=== PATIENT | male | born 1940 | race Hispanic/Latino ===

== ENCOUNTER 2020-06-08 19:30 | Inpatient (IN) | payer MEDICARE ==
[~2020-06-08] VITALS: Ht 165.1 cm; Wt 95.3 kg
[~2020-06-08 19:30] MED LIST: AEC81 PO; AMLO10TA7 PO; CELE-84 PO; CLON0.1T PO; CYCL30DR; ESOM40CA PO; METF-444 PO; OLME20TA10 PO; ROSU20TA23 PO
[2020-06-08] MEDS ORDERED: CEFAZOLIN SODIUM 1 GM VIAL ONE (19:36)
[2020-06-08] MEDS ORDERED: SODIUM CHLORIDE 0.9% 50 ML IV ONE (19:38)
[2020-06-08] MEDS ORDERED: MORPHINE SULFATE 2 MG/ML 1ML SYG ONE ×2 (19:44→23:30)
[2020-06-08] MEDS ORDERED: ONDANSETRON HCL 4 MG/2 ML VIAL ONE (19:44)
[2020-06-08] MEDS ORDERED: SODIUM CHLORIDE 0.9% 500ML 500 ML IV ONE (19:45)
[2020-06-08] MEDS ORDERED: TETANUS/DIPHTHERIA TOXOID [ADULT] 0.5 ML VIAL IM ONE (19:45)
[2020-06-08 19:55] LABS: BASOPHILS % (AUTO) 0.3 % (0.0-5.0); EOSINOPHILS % (AUTO) 1.1 % (0.0-8.0); HEMATOCRIT 37.3 % (42-54); LYMPHOCYTES % (AUTO) 37.4 % (21.0-51.0); MEAN CORPUSCULAR HEMOGLOBIN 29.7 pg (27.0-33.0); MEAN CORPUSCULAR HGB CONC 34.6 g/dL (32.0-36.0); MEAN CORPUSCULAR VOLUME 85.9 fL (79-99); MONOCYTES % (AUTO) 9.2 % (3.0-13.0); NEUTROPHILS % (AUTO) 51.3 % (40.0-77.0); PLATELET COUNT (AUTO) 154 K/uL (130-400); RED BLOOD CELL COUNT(AUTO) 4.34 MIL/uL (4.50-6.20); WHITE BLOOD COUNT (AUTO) 7.5 K/uL (4.8-10.8)
[2020-06-08 20:05] LABS: INR 0.95 (0.85-1.15); PARTIAL THROMBOPLASTIN TIME 26.7 SEC (26.3-35.5); PROTHROMBIN TIME 10.3 SEC (9.6-11.6)
[2020-06-08 20:19] LABS: CREATININE 1.5 mg/dL (0.5-1.5); POTASSIUM 4.5 mmol/L (3.5-5.1)
[2020-06-08 20:22] LABS: BILIRUBIN,TOTAL 0.3 mg/dL (0.2-1.0)
[2020-06-08] MEDS ORDERED: ACETAMINOPHEN 325 MG TAB PO PRN (20:30)
[2020-06-08] MEDS ORDERED: ONDANSETRON HCL 4 MG/2 ML VIAL IVP PRN (20:30)
[2020-06-08] MEDS: INSULIN R PO SS1 SQ SCH (21:00)
--- NOTE | 2020-06-08 23:36 | NUR ---
teodoro smith gave me report on the patient. he said he spoke with doctor whitehead and the doctor will come and see the patient in the morning and will decide if he will take him to surgery. for now, no official orders for surgery.
[2020-06-09] VITALS (7 sets, daily range): BP systolic 131–179; BP diastolic 59–73
--- NOTE | 2020-06-09 | NUR ---
patient alert and oriented times four. daughter tmaie goldman at the bedside and we went over his home medications one by one. i changed patient's wound with saline, nonadherent gauze, kerlex, toney wrap, and tape. picture taken and placed on the chart. placed patient npo after midnight in case doctor charley takes him to surgery in the morning. i texted doctor sheridan at 05:00 am to let him know that the patient needs a history and physical for surgery. pending call back. no further issues with the patient.
[2020-06-09] MEDS ORDERED: PANT20TA18 PO (00:34)
[2020-06-09] MEDS ORDERED: DONE5TAB33 PO (00:34)
[2020-06-09] MEDS ORDERED: OLME1TAB84 PO (00:34)
[2020-06-09 05:18] LABS: HEMATOCRIT 35.9 % (42-54); MEAN CORPUSCULAR HEMOGLOBIN 29.9 pg (27.0-33.0); MEAN CORPUSCULAR HGB CONC 34.8 g/dL (32.0-36.0); MEAN CORPUSCULAR VOLUME 85.9 fL (79-99); RED BLOOD CELL COUNT(AUTO) 4.18 MIL/uL (4.50-6.20); WHITE BLOOD COUNT (AUTO) 8.3 K/uL (4.8-10.8)
[2020-06-09] MEDS: INSULIN R PO SS1 SQ SCH ×4 (05:37→21:00)
[2020-06-09 05:53] LABS: ALBUMIN 3.4 g/dL (3.5-5.0); BILIRUBIN,TOTAL 0.3 mg/dL (0.2-1.0); MAGNESIUM 1.9 mg/dL (1.80-2.40); POTASSIUM 4.2 mmol/L (3.5-5.1); TOTAL PROTEIN, SERUM 6.3 g/dL (6.0-8.3)
[2020-06-09] MEDS: MORPHINE SULFATE 2 MG/ML 1ML SYG IVP PRN ×2 (13:14→21:30)
--- NOTE | 2020-06-09 16:57 | NUR ---
YESSY NOTE/DUDLEY UNABLE TO MEET WITH PATIENT IN ROOM, NEXT OF KIN CALLED, RAJ KOENIG. PER DAUGHTER, PATIENT LIVES WITH SPOUSE, IS INDEPENDENT WITH ADLS, NO USE OF HOME HEALTH OR PROVIDER, HAS CANE AND FEELS SAFE FOR PATIENT TO RETURN HOME AFTER HOSPITAL DISCHARGE. Addendum: 06/09/20 at 1658 by AMAN CROOKS RN CM Amended: Links added. Addendum: 06/09/20 at 1700 by AMAN CROOKS RN CM PER DAUGHTER, PATIENT DOES HAVE PROVIDER SERVICES BUT UNSURE OF HOURS FOR PROVIDER.
[2020-06-10] VITALS (20 sets, daily range): BP systolic 124–178; BP diastolic 65–78
[2020-06-10] MEDS: INSULIN R PO SS1 SQ SCH ×4 (06:52→22:22)
--- NOTE | 2020-06-10 11:10 | NUR ---
PT TAKEN TO SURGERY BY BED IN GOOD CONDITION ACCOMPANIED BY HIS DAUGHTER WHO WORKS IN SURGERY AND TECHS. CALM AND PLEASANT WITH DRSG TO LEFT HAND C/D/I S/L IN PLACE.
[2020-06-10] MEDS ORDERED: SODIUM CHLORIDE 0.9% 1000ML 1,000 ML IV ONE (11:11)
[2020-06-10] MEDS ORDERED: LIDOCAINE HCL 1% 20 ML VIAL ONE (11:30)
[2020-06-10] MEDS ORDERED: BUPIVACAINE/PF 0.5% 30ML VIAL ONE (11:30)
[2020-06-10] MEDS ORDERED: CEFAZOLIN SODIUM 1 GM VIAL ONE ×2 (11:31→11:59)
[2020-06-10] MEDS ORDERED: DEXAMETHASONE SOD PHOSPHATE 10MG/ML 1ML VIAL ONE (11:33)
[2020-06-10] MEDS ORDERED: LIDOCAINE PF 2% 5ML ABBOJECT ONE (11:33)
[2020-06-10] MEDS ORDERED: SUCCINYLCHOLINE CHLORIDE 20 MG/ML 10 ML VIAL ONE (11:33)
[2020-06-10] MEDS ORDERED: ROCURONIUM 10MG/1ML SYR 10 MG/ML ML ONE (11:34)
[2020-06-10] MEDS ORDERED: GLYCOPYRROLATE 1 MG/5 ML SYRINGE ONE (11:34)
[2020-06-10] MEDS ORDERED: NEOSTIGMINE 5MG/5ML SYR IV ONE (11:34)
[2020-06-10] MEDS ORDERED: MIDAZOLAM HCL 1 MG/ML 2ML VIAL ONE (11:34)
[2020-06-10] MEDS ORDERED: PROPOFOL 10 MG/ML 20ML VIAL IV ONE (11:34)
[2020-06-10] MEDS ORDERED: ONDANSETRON HCL 4 MG/2 ML VIAL ONE (11:34)
[2020-06-10] MEDS ORDERED: FENTANYL CITRATE PF 50 MCG/1 ML 2ML VIAL ONE ×2 (11:35→12:53)
[2020-06-10] MEDS ORDERED: DEXAMETHASONE SOD PHOSPHATE 4 MG/ML 1ML VIAL ONE (11:39)
--- NOTE | 2020-06-10 14:52 | NUR ---
PT RETURNED TO THE ROOM IN GOOD CONDITION BY BED A/OX4 WITH DRSG TO LT HAND IN PLACE. C/D/I
[2020-06-11 04:22] VITALS: BP 141/60
[2020-06-11 07:30] VITALS: BP 160/64
[2020-06-11] MEDS: INSULIN R PO SS1 SQ SCH ×4 (08:35→21:47)
[2020-06-11] MEDS: MORPHINE SULFATE 2 MG/ML 1ML SYG IVP PRN (08:41)
[2020-06-11 11:00] VITALS: BP 182/60
[2020-06-11] MEDS ORDERED: AMLODIPINE BESYLATE 5 MG TAB PO SCH ×2 (12:12→12:15)
[2020-06-11] MEDS: OLMESARTAN HCTZ PO SCH (12:13)
[2020-06-11] MEDS ORDERED: CLONIDINE HCL 0.1 MG TABLET PO SCH (12:15)
[2020-06-11] MEDS: CELECOXIB 200 MG CAP PO SCH (12:33)
[2020-06-11] MEDS: ASPIRIN 81 MG EC TAB PO SCH (12:35)
--- NOTE | 2020-06-11 12:44 | NUR ---
1210 patient signed IM Letter, I faxed IM Letter to [phone] and placed in chart under consent tab.
[2020-06-11 16:00] VITALS: BP 148/66
[2020-06-11 20:24] VITALS: BP 148/61
[2020-06-11] MEDS ORDERED: DONEPEZIL HCL 5 MG TAB PO SCH (21:00)
[2020-06-11] MEDS ORDERED: ATORVASTATIN CALCIUM 40 MG TABLET PO SCH (21:00)
[2020-06-11] MEDS: CLONIDINE HCL 0.1 MG TABLET PO SCH (21:45)
[2020-06-11 23:40] VITALS: BP 135/58
[2020-06-12 03:32] VITALS: BP 142/67
[2020-06-12] MEDS: INSULIN R PO SS1 SQ SCH (06:43)
[2020-06-12 08:00] VITALS: BP 155/71
[2020-06-12] MEDS: CLONIDINE HCL 0.1 MG TABLET PO SCH (08:54)
[2020-06-12] MEDS: OLMESARTAN HCTZ PO SCH (08:55)
[2020-06-12] MEDS: ASPIRIN 81 MG EC TAB PO SCH (08:55)
[2020-06-12] MEDS: CELECOXIB 200 MG CAP PO SCH (08:55)
[2020-06-12] MEDS ORDERED: AMLODIPINE BESYLATE 5 MG TAB PO SCH (09:00)
[2020-06-12 12:00] VITALS: BP 140/69
--- NOTE | 2020-06-12 15:07 | NUR ---
DISCHARGE INSTRUCTION PROVIDED TO PATIENT ,ALONG WITH SCRIPT FOR TYNENOL #3 .INFO GIVEN ON SIGNS TO LOOK OUT FOR ON CIRCULATION OR ANY PROBLEMS WITH INCISION.. F/U WITH DR FELIZ ALSO INFO PROVIDED TO DAUGHTER JOVANA VIA PHONE
[2020-07-12] MEDS ORDERED: ACET-66 PO (14:14)
== END 2020-06-12 15:00 | disposition home or self-care (01) | DRG 906 ==
LOC: EDH 19:30 → EDHIP 20:16 → INTOOBSV 20:16 → OBSVTOIN 20:16 → 3DH 23:04
PROVIDERS: ADMIT Internal Medicine Infectious Disease; ATTEND Internal Medicine Infectious Disease
PROC: 3E0234Z Introduction of Serum, Toxoid and Vaccine into Muscle, Percutaneous Approach (ICD-10-PCS; 2020-06-08)
PROC: 0PDS0ZZ Extraction of Left Thumb Phalanx, Open Approach (ICD-10-PCS; principal; 2020-06-10 12:35)
PROC: 0PSS34Z Reposition Left Thumb Phalanx with Internal Fixation Device, Percutaneous Approach (ICD-10-PCS; 2020-06-10 12:35)
DX: S68.022A Partial traumatic metacarpophalangeal amputation of left thumb, initial encounter (principal); Z23 Encounter for immunization; N18.9 Chronic kidney disease, unspecified; I12.9 Hypertensive chronic kidney disease with stage 1 through stage 4 chronic kidney disease, or unspecified chronic kidney disease; E11.22 Type 2 diabetes mellitus with diabetic chronic kidney disease; E66.9 Obesity, unspecified; Z68.34 Body mass index [BMI] 34.0-34.9, adult; E78.5 Hyperlipidemia, unspecified; F03.90 Unspecified dementia, unspecified severity, without behavioral disturbance, psychotic disturbance, mood disturbance, and anxiety; Z83.3 Family history of diabetes mellitus; M19.90 Unspecified osteoarthritis, unspecified site
CPT/HCPCS: 36415; 73130; 73140; 80053; 82948; 83735; 85025; 85027; 85610; 85730; 90714; A4606; C1713; G0378; J0330; J0690; J1100; J1815; J2001; J2250; J2405; J2704; J2710; J3010; J3490; J7030; J7040

== ENCOUNTER 2020-07-13 09:12 | Day surgery (SDC) | payer MEDICARE ==
[2020-07-12 09:29] LABS: BASOPHILS % (AUTO) 0.3 % (0.0-5.0); EOSINOPHILS % (AUTO) 0.2 % (0.0-8.0); HEMATOCRIT 38.5 % (42-54); LYMPHOCYTES % (AUTO) 16.4 % (21.0-51.0); MEAN CORPUSCULAR HEMOGLOBIN 29.4 pg (27.0-33.0); MEAN CORPUSCULAR HGB CONC 34.3 g/dL (32.0-36.0); MEAN CORPUSCULAR VOLUME 85.7 fL (79-99); MONOCYTES % (AUTO) 11.1 % (3.0-13.0); NEUTROPHILS % (AUTO) 71.2 % (40.0-77.0); PLATELET COUNT (AUTO) 144 K/uL (130-400); RED BLOOD CELL COUNT(AUTO) 4.49 MIL/uL (4.50-6.20); RED CELL DISTRIBUTION WIDTH 12.8 % (11.0-15.5); WHITE BLOOD COUNT (AUTO) 6.4 K/uL (4.8-10.8)
[2020-07-12 10:01] LABS: CREATININE 1.1 mg/dL (0.5-1.5); POTASSIUM 4.1 mmol/L (3.5-5.1)
[2020-07-12 13:46] VITALS: BP 158/76
[2020-07-13] VITALS (12 sets, daily range): BP systolic 144–163; BP diastolic 55–72
[~2020-07-13] VITALS: Ht 174 cm; Wt 95.6 kg
[~2020-07-13 09:12] MED LIST changes: +ACET-66 PO; +AMLO-258 PO; -AMLO10TA7 PO; +CEFAZOLIN SODIUM 1 GM VIAL IVP ONE; +DONE5TAB33 PO; -ESOM40CA PO; +OLME1TAB84 PO; -OLME20TA10 PO; +PANT20TA18 PO
[2020-07-13] MEDS ORDERED: CEFAZOLIN SODIUM 1 GM VIAL ONE (09:16)
[2020-07-13] MEDS ORDERED: SODIUM CHLORIDE 0.9% 1000ML 1,000 ML IV ONE (09:17)
[2020-07-13] MEDS ORDERED: DAPA10TA PO (10:28)
[2020-07-13] MEDS ORDERED: LOSA25TA41 PO (10:28)
[2020-07-13] MEDS ORDERED: MIDAZOLAM HCL 1 MG/ML 2ML VIAL ONE (10:54)
[2020-07-13] MEDS ORDERED: FENTANYL CITRATE PF 50 MCG/1 ML 2ML VIAL ONE (10:54)
--- NOTE | 2020-07-13 13:55 | NUR ---
DISCHARGE INSTRUCTIONS PROVIDED TO PATIENT'S DAUGHTER (RAJ KOENIG). INSTRUCTED TO CALL DR FINLEY FOR FOLLOW UP APPOINTMENT IN 1 WEEK. ALL QUESTIONS/CONCERNS ADDRESSED.
--- NOTE | 2020-07-13 14:10 | NUR ---
PATIENT DISCHARGED FROM FACILITY AND ASSISTED INTO PRIVATE VEHICLE DRIVEN BY DAUGHTER (RAJ KOENIG).
== END 2020-07-13 14:10 | disposition home or self-care (01) ==
LOC: DAH 09:12
PROVIDERS: ATTEND Orthopaedic Surgery
DX: T84.89XA Other specified complication of internal orthopedic prosthetic devices, implants and grafts, initial encounter (principal); E11.9 Type 2 diabetes mellitus without complications; I10 Essential (primary) hypertension; K21.9 Gastro-esophageal reflux disease without esophagitis; Y83.8 Other surgical procedures as the cause of abnormal reaction of the patient, or of later complication, without mention of misadventure at the time of the procedure
CPT/HCPCS: 26320; 36415; 64417; 73140; 76942; 80048; 82948 ×2; 85025; 93005; A4215; A4221; A4222; A4223; A4606; A6223; A6445; C9803; J0690; J2250; J3010; J7030; U0003

== ENCOUNTER → 2020-08-13 | Outpatient (CLI) | payer MEDICARE ==
[~2020-08-13] MED LIST changes: -CEFAZOLIN SODIUM 1 GM VIAL IVP ONE; +DAPA10TA PO; -DONE5TAB33 PO; +LOSA25TA41 PO; -OLME1TAB84 PO
== END | disposition home or self-care (01) ==
LOC: SHCH 10:39
PROVIDERS: ATTEND Internal Medicine Cardiovascular Disease
DX: I35.0 Nonrheumatic aortic (valve) stenosis (principal); R01.1 Cardiac murmur, unspecified
CPT/HCPCS: 93306

== ENCOUNTER → 2020-08-16 | Outpatient (CLI) | payer MEDICARE ==
[~2020-08-16] VITALS: Ht 167.6 cm; Wt 91.6 kg
[~2020-08-16] MED LIST changes: +REGADENOSON 0.4 MG/5 ML PF SYG IVP SCH
== END | disposition home or self-care (01) ==
LOC: SHCH 08:06
PROVIDERS: ATTEND Internal Medicine Cardiovascular Disease
DX: R06.00 Dyspnea, unspecified (principal); I35.0 Nonrheumatic aortic (valve) stenosis
CPT/HCPCS: 78452; 93017; 96374; A9500 ×2; J2785

== ENCOUNTER → 2021-07-07 | Outpatient (CLI) | payer MEDICARE ==
[~2021-07-07] MED LIST changes: -REGADENOSON 0.4 MG/5 ML PF SYG IVP SCH
== END | disposition home or self-care (01) ==
LOC: SHCH 12:31
PROVIDERS: ATTEND Internal Medicine Cardiovascular Disease
DX: I65.23 Occlusion and stenosis of bilateral carotid arteries (principal)
CPT/HCPCS: 93880

== ENCOUNTER → 2021-09-26 | Outpatient (CLI) | payer OTHER | END | disposition home or self-care (01) | LOC: RAH 08:42 | PROVIDERS: ATTEND Internal Medicine Cardiovascular Disease | DX: Z13.6 Encounter for screening for cardiovascular disorders (principal); I25.10 Atherosclerotic heart disease of native coronary artery without angina pectoris; I51.5 Myocardial degeneration | CPT/HCPCS: 75571 ==

== ENCOUNTER 2021-11-02 05:46 | Day surgery (SDC) | payer MEDICARE ==
[2021-10-27 09:48] LABS: BASOPHILS % (AUTO) 0.3 % (0.0-5.0); EOSINOPHILS % (AUTO) 1.1 % (0.0-8.0); HEMATOCRIT 42.9 % (42-54); LYMPHOCYTES % (AUTO) 26.4 % (21.0-51.0); MEAN CORPUSCULAR HEMOGLOBIN 27.6 pg (27.0-33.0); MEAN CORPUSCULAR HGB CONC 33.3 g/dL (32.0-36.0); MEAN CORPUSCULAR VOLUME 82.7 fL (79-99); MONOCYTES % (AUTO) 9.1 % (3.0-13.0); NEUTROPHILS % (AUTO) 62.4 % (40.0-77.0); PLATELET COUNT (AUTO) 165 K/uL (130-400); RED BLOOD CELL COUNT(AUTO) 5.19 MIL/uL (4.50-6.20); RED CELL DISTRIBUTION WIDTH 14.6 % (11.0-15.5); WHITE BLOOD COUNT (AUTO) 7.5 K/uL (4.8-10.8)
[2021-10-27 09:52] LABS: APPEARANCE,URINE Clear (CLEAR); BILIRUBIN,URINE Negative (NEGATIVE); COLOR,URINE Yellow (YELLOW); GLUCOSE, URINE (UA) >=1000 mg/dL (NEGATIVE); KETONES,URINE Negative (NEGATIVE); LEUKOCYTE ESTERASE ,URINE Negative (NEGATIVE); NITRATE,URINE Negative (NEGATIVE); OCCULT BLOOD,URINE Negative (NEGATIVE); PROTEIN,URINE Negative (NEGATIVE)
[2021-10-27 09:59] LABS: POTASSIUM 4.7 mmol/L (3.5-5.1)
[2021-10-27 10:07] LABS: INR 1.04 (0.85-1.15); PROTHROMBIN TIME 11.3 SEC (9.6-11.6)
[2021-10-27 10:08] LABS: PARTIAL THROMBOPLASTIN TIME 30.8 SEC (26.3-35.5)
[2021-10-27 10:09] LABS: BACTERIA,URINE Rare /HPF (None Seen); RBC,URINE 0-1 /HPF (0-1); SQUAMOUS EPITHELIAL CELL,UR Rare /HPF (0-2); WBC,URINE 0-1 /HPF (0-1)
[2021-11-01 11:14] VITALS: BP 162/76
[2021-11-02] VITALS (12 sets, daily range): BP systolic 121–171; BP diastolic 54–72
[~2021-11-02] VITALS: Ht 167.6 cm; Wt 86.6 kg
[~2021-11-02 05:46] MED LIST changes: -ACET-66 PO; +BIMA12.5OS OD; +CILO50TA PO; +CITA-106 PO; -CLON0.1T PO; -CYCL30DR; +DONE5TAB33 PO; +ISOS30TA92 PO; -LOSA25TA41 PO; +OLME-9 PO
[2021-11-02] MEDS ORDERED: 0.9%NACL 1000ML 1,000 ML IV ONE (06:06)
[2021-11-02] MEDS ORDERED: IOHEXOL 350 MG/ML 100ML INFUS..BTL IV ONE (07:14)
[2021-11-02] MEDS ORDERED: NITROGLYCERIN 50MG VIAL ONE (07:14)
[2021-11-02] MEDS ORDERED: HEPARIN 10,000 UNIT/10ML (1,000 UNIT/ML) VIAL ONE (07:14)
[2021-11-02] MEDS ORDERED: IOHEXOL-350 50ML VIAL IV ONE (07:14)
[2021-11-02] MEDS ORDERED: HEPARIN 1,000 UNIT VIAL ONE (07:14)
[2021-11-02] MEDS ORDERED: LIDOCAINE HCL 400MG/20ML VIAL ONE (07:29)
[2021-11-02] MEDS ORDERED: DEXTROSE 50%-WATER 50 ML DISP.SYRIN IV PRN (08:30)
[2021-11-02] MEDS ORDERED: 0.9%NACL 10ML VIAL IVP SCH (08:30)
[2021-11-02] MEDS ORDERED: PHARMACY COMMUNICATION MISC SCH (08:30)
[2021-11-02] MEDS ORDERED: CITALOPRAM 20 MG TABLET PO SCH (09:00)
[2021-11-02] MEDS ORDERED: ASPIRIN 81 MG EC TAB PO SCH (09:00)
[2021-11-02] MEDS ORDERED: ISOSORBIDE MONO 30MG SR TAB PO SCH (09:00)
[2021-11-02] MEDS ORDERED: LOSARTAN 100 MG TABLET PO SCH (09:00)
[2021-11-02] MEDS ORDERED: **HM**FARXIGA 10MG PO SCH (09:00)
[2021-11-02] MEDS ORDERED: PANTOPRAZOLE 40 MG TAB DR PO SCH (09:00)
[2021-11-02] MEDS ORDERED: CILOSTAZOL 100 MG TAB PO SCH (09:00)
[2021-11-02] MEDS ORDERED: AMLODIPINE 5 MG TAB PO SCH (09:00)
[2021-11-02] MEDS ORDERED: HYDROCHLOROTHIAZIDE 25 MG TABLET PO SCH (09:00)
[2021-11-02] MEDS ORDERED: CELECOXIB 200 MG CAP PO SCH (09:00)
[2021-11-02] MEDS ORDERED: INSULIN HUMULIN R 100 UNIT/ML 3ML SQ SCH (11:30)
[2021-11-02] MEDS ORDERED: ATORVASTATIN 40 MG TABLET PO SCH (21:00)
[2021-11-02] MEDS ORDERED: DONEPEZIL HCL 5 MG TAB PO SCH (21:00)
[2021-11-02] MEDS ORDERED: LATANOPROST 2.5 ML DROPS OD SCH (21:00)
[2021-11-04] MEDS ORDERED: METFORMIN HCL 500 MG TABLET PO SCH (09:00)
== END 2021-11-02 16:20 | disposition home or self-care (01) ==
LOC: DAH 05:46 → UNDOADMIN 05:47 → DAHIP 05:47
PROVIDERS: ATTEND Internal Medicine Cardiovascular Disease
DX: I25.119 Atherosclerotic heart disease of native coronary artery with unspecified angina pectoris (principal); I10 Essential (primary) hypertension; E78.00 Pure hypercholesterolemia, unspecified; Z79.01 Long term (current) use of anticoagulants; Z79.84 Long term (current) use of oral hypoglycemic drugs; Z79.82 Long term (current) use of aspirin; Z98.890 Other specified postprocedural states; Z82.49 Family history of ischemic heart disease and other diseases of the circulatory system
CPT/HCPCS: 36415; 71045; 80048; 81001; 82948 ×2; 85025; 85610; 85730; 93005; 93458; A4215; A4216; A4221; A4222; A4223 ×3; A4606; A4663; C1894; J1644 ×2; J3490 ×2; J7030; Q9965; Q9967 ×2

== ENCOUNTER → 2022-09-02 | Outpatient (CLI) | payer MEDICARE ==
[~2022-09-02] MED LIST changes: +AMIO100T4 PO; -CILO50TA PO; +CILO50TA2 PO; +CITA-107 PO; +CYCL30DR OP; +ROSU20TA31 PO
== END | disposition home or self-care (01) ==
LOC: SHCH 09:52
PROVIDERS: ATTEND Internal Medicine Cardiovascular Disease
DX: I65.23 Occlusion and stenosis of bilateral carotid arteries (principal); I70.293 Other atherosclerosis of native arteries of extremities, bilateral legs
CPT/HCPCS: 93880; 93925

== ENCOUNTER → 2022-09-02 | Outpatient (CLI) | payer MEDICARE | END | disposition home or self-care (01) | LOC: SHCH 09:54 | PROVIDERS: ATTEND Internal Medicine Cardiovascular Disease | DX: I73.9 Peripheral vascular disease, unspecified (principal) | CPT/HCPCS: 93925 ==

== ENCOUNTER → 2023-09-11 | Outpatient (CLI) | payer MEDICARE ==
[~2023-09-11] MED LIST changes: +CELE-125 PO; -CELE-84 PO; -ROSU20TA31 PO; +ROSU20TA73 PO
== END | disposition home or self-care (01) ==
LOC: SHCH 10:49
PROVIDERS: ATTEND Internal Medicine Cardiovascular Disease
DX: I65.23 Occlusion and stenosis of bilateral carotid arteries (principal)
CPT/HCPCS: 93880

== ENCOUNTER → 2024-02-12 | Outpatient (CLI) | payer MEDICARE ==
[2024-02-12 12:14] LABS: CREATININE 1.2 mg/dL (0.5-1.3); POTASSIUM 4.4 mmol/L (3.5-5.1)
== END | disposition home or self-care (01) ==
LOC: LAB 09:37
PROVIDERS: ATTEND Internal Medicine Cardiovascular Disease
DX: I10 Essential (primary) hypertension (principal)
CPT/HCPCS: 36415; 80048

== ENCOUNTER → 2024-10-10 | Outpatient (CLI) | payer MEDICARE ==
[~2024-10-10] MED LIST changes: -AMIO100T4 PO; -AMLO-258 PO; -BIMA12.5OS OD; +BIMA2.5D4 OU; -CELE-125 PO; -CITA-106 PO; +CLOP75TA32 PO; -CYCL30DR OP; +CYCL30DR OU; +FINE10TA PO; +KRIL1CAP29 PO; +MECL-302 PO; +MULT-1285 PO; +NITR0.4T50 SL; -OLME-9 PO; +OLME20TA68 PO; -ROSU20TA23 PO; -ROSU20TA73 PO; +ROSU20TA98 PO; +TAMS-1 PO
--- NOTE | 2024-10-10 16:58 | HMCSR ---
APPROVED REPORT Laterality: Bilateral Indications i65.21 Doppler Spectral Velocity Analysis PSV / EDVPSV / EDV ECA (R) 407 / cm/sECA (L) 110 / cm/s dICA (R) 113 / 30 cm/sdICA (L) 76 / 26 cm/s Benito (R) 54 / 9 cm/smICA (L) 72 / 22 cm/s pICA (R) 134 / 28 cm/spICA (L) 47 / 15 cm/s dCCA (R) 55 / 12 cm/sdCCA (L) 65 / 17 cm/s mCCA (R) 57 / 13 cm/smCCA (L) 78 / 17 cm/s pCCA (R) 66 / 9 cm/spCCA (L) 93 / 13 cm/s Vert (R) 41 / cm/sVert (L) 42 / cm/s Subl. (R) 149 / cm/sSubl. (L) 185 / cm/s ICA/CCA 2.03ICA/CCA 0.82 Technologist Impression Moderate heterogenous calcified plaque noted in the bilateral carotids. Evidence of a stent placement in the Right ICA, that appears patent without stenosis. Significant velocites noted in the Right ECA. Left ICA appears patent, without hemodynamic significance. Bilateral vertebral arteries appear antegrade. Conclusion Moderate heterogenous calcified plaque noted in the bilateral carotids. Evidence of a stent placement in the Right ICA, that appears patent without stenosis. Significant velocites noted in the Right ECA. Left ICA appears patent, without hemodynamic significance. Bilateral vertebral arteries appear antegrade. Conclusion Moderate heterogenous calcified plaque noted in the bilateral carotids. Evidence of a stent placement in the Right ICA, that appears patent without stenosis. Significant velocites noted in the Right ECA. Left ICA appears patent, without hemodynamic significance. Bilateral vertebral arteries appear antegrade.
== END | disposition home or self-care (01) ==
LOC: SHCH 08:46
PROVIDERS: ATTEND Internal Medicine Cardiovascular Disease
DX: I65.23 Occlusion and stenosis of bilateral carotid arteries (principal)
CPT/HCPCS: 93880

== ENCOUNTER 2025-02-04 13:54 | Emergency (ER) | payer MEDICARE ==
[~2025-02-04 13:54] MED LIST changes: -TAMS-1 PO; +TAMS-55 PO
--- NOTE | 2025-02-04 14:02 | NUR ---
REFER TO TRAUMA FLOW SHEET
--- NOTE | 2025-02-04 14:20 | EKG ---
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
--- NOTE | 2025-02-04 14:29 | HMCIMG ---
Exam Type: CHEST 1VW Clinical Information: fall Comparison: None Findings: There is cardiomegaly and there is status post median sternotomy. The lungs are clear of infiltrates. Impression: Clear lungs.
[2025-02-04 14:33] LABS: BASOPHILS # (AUTO) 0.02 K/uL (0.00-0.20); BASOPHILS % (AUTO) 0.3 % (0.0-5.0); EOSINOPHILS # (AUTO) 0.05 K/uL (0.00-0.70); EOSINOPHILS % (AUTO) 0.7 % (0.0-8.0); IMMATURE GRANULOCYTE ABSOLUTE 0.05 K/uL (0-1); LYMPHOCYTES # (AUTO) 0.9 K/uL (1.0-4.8); LYMPHOCYTES % (AUTO) 12.6 % (21.0-51.0); MEAN CORPUSCULAR HEMOGLOBIN 29.1 pg (27.0-33.0); MEAN CORPUSCULAR HGB CONC 33.1 g/dL (32.0-36.0); MEAN CORPUSCULAR VOLUME 87.7 fL (79-99); MONOCYTES # (AUTO) 0.6 K/uL (0.1-1.0); MONOCYTES % (AUTO) 7.8 % (3.0-13.0); NEUTROPHILS # (AUTO) 5.8 K/uL (1.8-7.7); NEUTROPHILS % (AUTO) 77.9 % (40.0-77.0); PLATELET COUNT (AUTO) 105 K/uL (130-400); RED BLOOD CELL COUNT(AUTO) 3.99 MIL/uL (4.50-6.20); RED CELL DISTRIBUTION WIDTH 14.6 % (11.0-15.5); WHITE BLOOD COUNT (AUTO) 7.5 K/uL (4.8-10.8)
--- NOTE | 2025-02-04 14:34 | HMCIMG ---
Exam Type: CT HEAD/BRAIN W/O CONTRAST Clinical Information: fall Comparison: None CT Dose Index (CTDI): 57.33 mGy Dose Length Product (DLP): 956.79 total mGy-cm Findings: The examination shows atrophy. There is low attenuation throughout the periventricular white matter locations, consistent with chronic small vessel ischemic changes. No acute intra- or extra-axial fluid collections are seen. There is no evidence of acute or chronic hemorrhage. There is no mass effect or shift of midline structures. There are no areas to suggest acute infarct. The skull windows show no significant abnormalities. IMPRESSION: 1. ATROPHY AND CHRONIC SMALL VESSEL ISCHEMIC CHANGES. This study was performed using dose reduction techniques to include automated exposure control and/or adjustment of the mA and/or kV according to patient size.
[2025-02-04 14:45] LABS: CREATININE 2.1 mg/dL (0.5-1.3); POTASSIUM 4.7 mmol/L (3.5-5.1)
[2025-02-04 14:52] LABS: B-TYPE NATRIURETIC PEPTIDE 171 pg/mL (0-100)
--- NOTE | 2025-02-04 14:54 | ERN ---
General Chief Complaint: Trauma Activation Stated Complaint: FALL, HIT HIS HEAD ON BLOOD THINNERS, Time Seen by MD: 13:56 Source: patient History of Present Illness Initial Comments Patient is a an 81-year-old male coming in to be evaluated after he had a fall earlier today. Per EMS patient was ambulating with his walker fell backwards hitting himself in the head. He did not lose consciousness. He does have a cardiac history so he was here for further evaluation. Allergies: Coded Allergies: No Known Drug Allergies (Unverified Allergy, Unknown, 01/06/15) Home Meds Active Scripts Tamsulosin HCl (Flomax) 0.4 Mg Cap.er.24h, 0.4 MG PO DAILY, #[address] Escudero Refill Prov:ANASTACIA FARNSWORTH SENIOR CLINICAL PROJECT MANAGER 06/05/24 Reported Medications Bimatoprost (Lumigan) 0.01 % Drops, 1 DROP OU HS, DROP 06/02/24 Cyclosporine (Restasis) 0.05 % Droperette, 1 EACH OU BID, DROP 05/30/24 Nitroglycerin (Nitroglycerin) 0.4 Mg Tab.subl, 0.4 MG SL AD PRN for CHEST PAIN, TAB.SL 05/30/24 Meclizine HCl (Meclizine HCl) 25 Mg Tablet, 25 MG PO BID, TAB 05/30/24 Mv-Min/Folic/K1/Lycopen/Lutein (Men 50 Plus Multivitamin Tab) 300 Mcg-60 Mcg-600 Mcg-300 Mcg Tablet, 1 EACH PO DAILY, TAB 05/30/24 Krill/[place]-3/Dha/Epa/Lipids (Krill Oil 350 mg Softgel) 350 Mg-90 Mg-24 Mg-50 Mg-130 Mg Capsule, 1 EACH PO DAILY, CAP 05/30/24 Finerenone (Kerendia) 10 Mg Tablet, 10 MG PO DAILY, TAB 05/30/24 Clopidogrel Bisulfate (Clopidogrel) 75 Mg Tablet, 75 MG PO DAILY, TAB 05/30/24 Olmesartan Medoxomil (Olmesartan Medoxomil) 20 Mg Tablet, 20 MG PO DAILY, TAB 05/30/24 Cilostazol (Cilostazol) 50 Mg Tablet, 50 MG PO BID, TAB 06/24/22 Aspirin (ASPIRIN 81 MG ECTAB) 81 Mg Ectab, 81 MG PO DAILY, TAB.EC 06/24/22 Citalopram Hydrobromide (Citalopram HBr) 20 Mg Tablet, 20 MG PO DAILY, TAB 06/24/22 Dapagliflozin Propanediol (Farxiga) 10 Mg Tablet, 10 MG PO DAILY, TAB 06/24/22 Pantoprazole Sodium (Pantoprazole Sodium) 20 Mg Tablet.dr, 20 MG PO DAILY, TAB 06/24/22 Donepezil HCl (Donepezil HCl) 5 Mg Tablet, 5 MG PO HS, TAB 06/24/22 Rosuvastatin Calcium (Rosuvastatin Calcium) 20 Mg Tablet, 20 MG PO HS, TAB 06/24/22 Metformin HCl (Metformin HCl) 500 Mg Tablet, 500 MG PO BID, TAB 06/24/22 Isosorbide Mononitrate (Isosorbide Mononitrate ER) 30 Mg Tab.er.24h, 30 MG PO AM, TAB 11/01/21 Past Medical History Past Medical History: A-Fib, Diabetes-Type II, High Cholesterol, Heart Disease, Hypertension Past Surgical History: CABG Surgical History Other: LEFT THUMB Results Laboratory and Microbiology Lab and Micro Result Laboratory Tests Test 02/04/25 14:18 White Blood Count 7.5 K/uL (4.8-10.8) Red Blood Count 3.99 MIL/uL (4.50-6.20) L Hemoglobin 11.6 g/dL (14.0-18.0) L Hematocrit 35.0 % (42-54) L Mean Corpuscular Volume 87.7 fL (79-99) Mean Corpuscular Hemoglobin 29.1 pg (27.0-33.0) Mean Corpuscular Hemoglobin Concent 33.1 g/dL (32.0-36.0) Red Cell Distribution Width 14.6 % (11.0-15.5) Platelet Count 105 K/uL (130-400) L Mean Platelet Volume 8.7 fL (7.5-10.5) Immature Granulocyte % (Auto) 0.7 % (0-1) Neutrophils (%) (Auto) 77.9 % (40.0-77.0) H Lymphocytes (%) (Auto) 12.6 % (21.0-51.0) L Monocytes (%) (Auto) 7.8 % (3.0-13.0) Eosinophils (%) (Auto) 0.7 % (0.0-8.0) Basophils (%) (Auto) 0.3 % (0.0-5.0) Neutrophils # (Auto) 5.8 K/uL (1.8-7.7) Lymphocytes # (Auto) 0.9 K/uL (1.0-4.8) L Monocytes # (Auto) 0.6 K/uL (0.1-1.0) Eosinophils # (Auto) 0.05 K/uL (0.00-0.70) Basophils # (Auto) 0.02 K/uL (0.00-0.20) Absolute Immature Granulocyte (auto 0.05 K/uL (0-1) Nucleated Red Blood Cells 0.0 % (0.0-0.19) Sodium Level 139 mmol/L (136-145) Potassium Level 4.7 mmol/L (3.5-5.1) Chloride Level 106 mmol/L (101-111) Carbon Dioxide Level 25 mmol/L (21-32) Blood Urea Nitrogen 30 mg/dL (7-18) H Creatinine 2.1 mg/dL (0.5-1.3) H Glomerular Filtration Rate Calc 31 mL/min (>90) Random Glucose 138 mg/dL (70-105) H Total Calcium 8.3 mg/dL (8.5-10.1) L Troponin I High Sensitivity 10 ng/L (4-75) B-Type Natriuretic Peptide 171 pg/mL (0-100) H Labs Reviewed?: Yes EKG/XRAY/US/CT/MRI EKG Comment 02/04/2025 time 2:13 p.m. Ventricular rate 64 Normal sinus rhythm No ST wave elevation or depression X-RAY Comment [address] [address] IMAGING REPORT Signed PATIENT: STEVEN GARCIA V MR#: [id number] : 1940 SEX: M AGE: 84 LOCATION: [facility] ORDER 1404 STATUS: REG ER [facility] REPORT#: [id number] SERVICE 1350 REASON: fall ORDERING PHYSICIAN: JULITA BLACKBURN MD PROCEDURE: CXR1VW - CHEST 1VW Exam Type: CHEST 1VW Clinical Information: fall Comparison: None Findings: There is cardiomegaly and there is status post median sternotomy. The lungs are clear of infiltrates. Impression: Clear lungs. DICTATED BY: DAREN SAHU MD DATE: 02/04/251424 ELECTRONICALLY SIGNED BY: DAREN SAHU MD DATE: 02/04/251428 CT Scan Comment [place] [address] [address] IMAGING REPORT Signed PATIENT: STEVEN GARCIA V MR#: [id number] : 1940 SEX: M AGE: 84 LOCATION: [facility] ORDER 03 STATUS: REG ER REPORT#: [id number] SERVICE 1359 REASON: fall ORDERING PHYSICIAN: JULITA BLACKBURN MD PROCEDURE: HEAD WO - CT HEAD/BRAIN W/O CONTRAST Exam Type: CT HEAD/BRAIN W/O CONTRAST Clinical Information: fall Comparison: None CT Dose Index (CTDI): 57.33 mGy Dose Length Product (DLP): 956.79 total mGy-cm Findings: The examination shows atrophy. There is low attenuation throughout the periventricular white matter locations, consistent with chronic small vessel ischemic changes. No acute intra- or extra-axial fluid collections are seen. There is no evidence of acute or chronic hemorrhage. There is no mass effect or shift of midline structures. There are no areas to suggest acute infarct. The skull windows show no significant abnormalities. IMPRESSION: 1. ATROPHY AND CHRONIC SMALL VESSEL ISCHEMIC CHANGES. This study was performed using dose reduction techniques to include automated exposure control and/or adjustment of the mA and/or kV according to patient size. DICTATED BY: DAREN SAHU MD DATE: 02/04/251429 ELECTRONICALLY SIGNED BY: DAREN SAHU MD DATE: 02/04/251433 MDM MDM: Differential diagnosis: Fall, head injury, Rationale: Tests considered and ordered secondary to shared decision making include: Previous outside records reviewed: Old ER visits. Risk of complication and/or morbidity or mortality of patient management: None Patient was 74-year-old male coming in to be evaluated after he had a fall. Patient states that he was ambulating with his walker fell back. He did not lose consciousness but is complaining of with a headache. Imaging studies negative for acute findings. Patient will be discharged in stable condition with a diagnosis of mechanical fall with head injury. ED Course Orders Procedure Category Date Status Time Cbc With Differential LAB 02/04/25 Complete 13:59 B-Type Natriuretic LAB 02/04/25 Complete Peptide 13:59 Chest 1vw RAD 02/04/25 Resulted 13:59 12 Lead Ekg Tracing- EKG 02/04/25 Complete Technical 13:59 Troponin I High LAB 02/04/25 Complete Sensitivity 13:59 Basic Metabolic Panel LAB 02/04/25 Complete 13:59 Ct Head/Brain W/O CT 02/04/25 Resulted Contrast 13:59 DX & DISP Disposition: Discharge Departure Impression: Primary Impression: Fall Additional Impressions: Head injury, CRF (chronic renal failure) Condition: Stable Additional Instructions: FOLLOW-UP WITH PRIMARY CARE PROVIDER IN 1 TO 2 DAYS. TAKE MEDICATIONS DIRECTED HERE IN THE EMERGENCY ROOM. OKAY TO CONTINUE HOME MEDICATIONS UNLESS OTHERWISE DISCUSSED DURING YOUR VISIT IN THE EMERGENCY ROOM TODAY. RETURN TO YOUR NEAREST EMERGENCY ROOM IF SYMPTOMS WORSEN OR IF THERE IS NO IMPROVEMENT. CALL 911 IF YOU NEED IMMEDIATE ASSISTANCE. TAKE TYLENOL [id number] NEEDED AND IF NO CONTRAINDICATIONS ARE PRESENT. INCREASE ORAL HYDRATION. A WOUND CULTURE OR URINE CULTURE WAS ORDERED HERE IN THE EMERGENCY ROOM DEPARTMENT PLEASE FOLLOW-UP WITH PRIMARY CARE PROVIDER AND ADVISE THEM TO GET REPEAT PORTS FROM OUR FACILITY. IF YOU HAD ANY [place] WRAP/SPLINTS THAT WERE APPLIED HERE, PLEASE DO NOT REMOVE THEM UNTIL YOU SEE YOUR PRIMARY CARE OR SPECIALTY. Referrals: Referrals: LATIA DUNAWAY (PCP) Time of Disposition: 15:13 JULITA BLACKBURN MD Feb 04, 2025 14:54
== END 2025-02-04 16:00 | disposition home or self-care (01) ==
LOC: EDH 13:54
DX: S09.8XXA Other specified injuries of head, initial encounter (principal); E11.22 Type 2 diabetes mellitus with diabetic chronic kidney disease; I12.9 Hypertensive chronic kidney disease with stage 1 through stage 4 chronic kidney disease, or unspecified chronic kidney disease; N18.9 Chronic kidney disease, unspecified; E78.00 Pure hypercholesterolemia, unspecified; I48.91 Unspecified atrial fibrillation; Z79.02 Long term (current) use of antithrombotics/antiplatelets; Z79.621 Long term (current) use of calcineurin inhibitor; Z79.82 Long term (current) use of aspirin; Z79.84 Long term (current) use of oral hypoglycemic drugs; Z79.899 Other long term (current) drug therapy; Z95.1 Presence of aortocoronary bypass graft; W18.39XA Other fall on same level, initial encounter; Y93.01 Activity, walking, marching and hiking; Y92.89 Other specified places as the place of occurrence of the external cause; Y99.8 Other external cause status
CPT/HCPCS: 36415; 70450; 71045; 80048; 83880; 84484; 85025; 93005; 99285